=== PATIENT | male | born 1935 | race Hispanic/Latino ===

== ENCOUNTER 2017-05-04 11:29 | Outpatient (CLI) | payer MEDICARE, OTHER ==
--- NOTE | 2017-05-04 15:58 | XRay Report ---
LEFT FOOT 2 VIEWS: 05/04/17 CLINICAL: Left foot pain. FINDINGS: AP. No fracture or dislocation. Mild arthritis at the first MTP joint and the IP joint of the great toe. The rest of the joints are normal. Large Achilles and plantar calcaneal enthesophytes. Normal soft tissues. 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
== END 2017-05-04 11:30 | disposition home or self-care (01) ==
LOC: SPVIMAG 11:29
PROVIDERS: ATTEND Physical Medicine & Rehabilitation
DX: M19.072 Primary osteoarthritis, left ankle and foot (principal); M77.32 Calcaneal spur, left foot